=== PATIENT | female | born 1950 | race Caucasian/White ===

== ENCOUNTER → 2019-04-05 | Outpatient (REF) | payer MEDICARE ==
[2019-04-05 18:38] LABS: APPEARANCE, URINE CLEAR (CLEAR); BACTERIA, URINE AUTO 1+ (NEGATIVE); BILIRUBIN, URINE AUTO NEGATIVE (NEGATIVE); BLOOD, URINE BLOOD 1+ (NEGATIVE); COLOR, URINE STRAW (YELLOW); GLUCOSE, URINE (UA) AUTO NEGATIVE (NEGATIVE); KETONE, URINE AUTO NEGATIVE (NEGATIVE); LEUKOCYTE ESTERASE, URINE AUTO TRACE (NEGATIVE); NITRITE, URINE AUTO NEGATIVE (NEGATIVE); PROTEIN, URINE AUTO NEGATIVE (NEGATIVE); RBC, URINE AUTO 2 /HPF (0-3); SPECIFIC GRAVITY URINE AUTO 1.006 (1.002-1.035); SQUAMOUS EPITHELIAL CELL UR AU 1 /HPF (0-6); UROBILINOGEN, URINE AUTO 0.2 mg/dL (0.0-2.0); WBC, URINE AUTO 11 /HPF (0-3)
== END ==
LOC: M SFHCCAPE 11:37
PROVIDERS: ATTEND Physician Assistant
DX: R39.15 Urgency of urination (principal)

== ENCOUNTER → 2019-04-26 | Outpatient (CLI) | payer MEDICARE ==
--- NOTE | 2019-04-26 13:57 | REP ---
Pelvic sonography: History: Pelvic pain. Findings: Transabdominal scanning is performed. The patient declined transvaginal imaging. Uterine dimensions are normal at 7.3 x 2.5 x 3.3 cm. Endometrial echo is 0.3 cm thick. No focal uterine mass is seen. No free fluid is noted. A normal left ovary is observed measuring 1.9 x 0.9 x 1.7 cm. The right ovary could not be identified transabdominally. No right adnexal mass or cyst is appreciated. Impression: No abnormality noted. Right ovary could not be identified sonographically. No cyst or mass is seen.
== END ==
LOC: M WHC 11:51
PROVIDERS: ATTEND Obstetrics & Gynecology
DX: R10.2 Pelvic and perineal pain (principal)

== ENCOUNTER → 2019-12-02 | Outpatient (REF) | payer MEDICARE ==
[2020-01-09 14:33] LABS: CALPROTECTIN STOOL SEE SEPARATE REPORT; FATS NEUTRAL SEE SEPARATE REPORT; FATS TOTAL SEE SEPARATE REPORT
[2020-01-18 13:47] LABS: CHYMOTRYPSIN, STOOL 14.7 U/g (2.30-51.40)
== END ==
LOC: M LAB REF 14:07
PROVIDERS: ATTEND Internal Medicine Gastroenterology
DX: R19.7 Diarrhea, unspecified (principal); K21.9 Gastro-esophageal reflux disease without esophagitis; K58.0 Irritable bowel syndrome with diarrhea; R14.0 Abdominal distension (gaseous)